=== PATIENT | male | born 1975 | race Asian ===

== ENCOUNTER 2018-09-30 18:02 | Emergency (ER) | payer BC ==
[~2018-09-30] VITALS: Ht 180.3 cm; Wt 91.2 kg
[2018-09-30 18:08] VITALS: Ht 180.3 cm; Wt 91.2 kg
[2018-09-30 19:45] LABS: PLATELET COUNT 197 x10^3mcL (130-400); RED CELL DISTRIBUTION WIDTH 12.6 % (11.5-14.5)
[2018-09-30 19:47] LABS: BASOPHIL % 0 % (0-2)
[2018-09-30 19:50] LABS: CALCIUM 8.7 mg/dL (8.5-10.1); CARBON DIOXIDE 29.8 mmol/L (21-32); CREATININE SERUM 1.5 mg/dL (0.7-1.3); POTASSIUM SERUM 3.8 mmol/L (3.5-5.1)
[2018-09-30 19:54] LABS: ALBUMIN 4.4 g/dL (3.4-5.0); BILIRUBIN TOTAL 0.75 mg/dL (0.20-1.00); TOTAL PROTEIN, SERUM 7.7 g/dL (6.4-8.2)
[2018-10-01 00:13] VITALS: BP 119/82
== END 2018-10-01 00:13 | disposition home or self-care (01) ==
LOC: ED 18:02
PROVIDERS: Emergency Medicine
DX: N23 Unspecified renal colic (principal); Z87.442 Personal history of urinary calculi
CPT/HCPCS: J1885; J2270; J2405; J3010; J7030

== ENCOUNTER 2020-10-09 09:32 | Emergency (ER) | payer OTHER, SELFPAY ==
[~2020-10-09] VITALS: Ht 180.3 cm; Wt 90.7 kg
[2020-10-09 09:47] VITALS: Ht 180.3 cm; Wt 90.7 kg
[2020-10-09 12:05] LABS: CALCIUM 9.2 mg/dL (8.5-10.1); CHLORIDE SERUM 104 mmol/L (98-107); CREATININE SERUM 1.1 mg/dL (0.7-1.3); GFR1 > 60 mL/min; GLUCOSE SERUM 106 mg/dL (74-106); POTASSIUM SERUM 4.1 mmol/L (3.5-5.1); SODIUM SERUM 142 mmol/L (136-145)
[2020-10-09 12:08] LABS: BASOPHIL % 0.4 % (0.2-1.5); PLATELET COUNT 262 x10^3mcL (152-348); RED CELL DISTRIBUTION WIDTH 12.8 % (12.1-16.2)
[2020-10-09 12:09] LABS: ALBUMIN 3.2 g/dL (3.4-5.0); ALKALINE PHOSPHATASE 113 U/L (46-116); ALT/SGPT 82 U/L (16-63); AST/SGOT 34 U/L (15-37); BILIRUBIN TOTAL 0.85 mg/dL (0.20-1.00); LACTIC DEHYDROGENASE (LDH) 308 U/L (100-190); TOTAL PROTEIN, SERUM 7.8 g/dL (6.4-8.2)
[2020-10-09 14:42] LABS: rbc morphology (normal/abnorm) NORMAL (NORMAL)
[2020-10-09 17:25] VITALS: BP 124/78
== END 2020-10-09 17:25 | disposition home or self-care (01) ==
LOC: ED 09:32 → DU 12:56 → ED 12:56
PROVIDERS: Emergency Medicine
DX: U07.1 COVID-19 (principal); J12.89 Other viral pneumonia; E46 Unspecified protein-calorie malnutrition; Z87.442 Personal history of urinary calculi
CPT/HCPCS: 83880; 85378; 87804; J0456; J0696; J1100; J7050; J7060; U0003